=== PATIENT | female | born 1985 | race American Indian/Alaskan Native ===

== ENCOUNTER 2019-12-16 21:01 | Emergency (ER) | payer SELFPAY ==
--- NOTE | 2019-12-16 22:14 | Emergency Department Report ---
HPI <SNEHA REAL - Last Filed: 12/18/19 09:52> - HPI HPI: This is a 34-year-old female presents to the emergency department for a mental health evaluation. The patient has been having depression over the past 2 weeks ever since the patient had a miscarriage. She has been having some suicidal ideations without a plan. The patient says "I called my friend who works here and asked if I could come and be on suicide watch." The patient does have a diagnosed history of depression for which he takes sertraline. She says that she does not have any support structure, especially regarding her family. She says that her family does not know about the miscarriage. She denies any other past medical history. She denies any hallucinations or homicidal ideations. <CHRIS TURNER - Last Filed: 12/19/19 10:36> - General Chief Complaint: Psych Time Seen by Provider: 12/16/19 22:02 ED Past Medical Hx <SNEHA REAL - Last Filed: 12/18/19 09:52> <CRHIS TURNER Jeremie - Last Filed: 12/19/19 10:36> - Medications Home Medications: Home Medications Medication Instructions Recorded Confirmed Last Taken Type Sertraline [Zoloft] 1 tab PO QHS 12/17/19 12/17/19 Unknown History ED Review of Systems ROS: Stated complaint: MH EVAL,SUICIDAL THOUGHTS Other details as noted in HPI <SNEHA REAL - Last Filed: 12/18/19 09:52> ROS: Stated complaint: MH EVAL,SUICIDAL THOUGHTS Other details as noted in HPI Comment: All other systems reviewed and negative Constitutional: denies: chills, fever Respiratory: denies: shortness of breath Cardiovascular: denies: chest pain Gastrointestinal: denies: abdominal pain Musculoskeletal: denies: back pain Neurological: denies: headache Psychiatric: suicidal thoughts. denies: auditory hallucinations, visual hallucinations, homicidal thoughts <CHRIS TURNER - Last Filed: 12/19/19 10:36> Physical Exam - Physical Exam Vital Signs: Vital Signs 12/16/19 12/17/19 12/17/19 22:02 02:00 07:00 Temperature 98.3 F 98.9 F 98.6 F Pulse Rate 96 H 76 87 Respiratory 20 16 16 Rate Blood Pressure 124/89 105/74 101/72 [Left] O2 Sat by Pulse 100 98 100 Oximetry 12/17/19 12/17/19 12/17/19 15:01 20:03 21:17 Temperature 99.9 F H 98.8 F Pulse Rate 96 H 72 Respiratory 16 18 16 Rate Blood Pressure 98/69 103/71 [Left] O2 Sat by Pulse 100 98 Oximetry 12/17/19 12/18/19 12/18/19 22:17 01:22 08:26 Temperature 98.1 F 98.6 F Pulse Rate 71 88 Respiratory 16 18 18 Rate Blood Pressure 96/56 111/63 [Left] O2 Sat by Pulse 98 100 Oximetry <SNEHA REAL - Last Filed: 12/18/19 09:52> - Physical Exam Vital Signs: Vital Signs 12/16/19 22:02 Temperature 98.3 F Pulse Rate 96 H Respiratory 20 Rate Blood Pressure 124/89 [Left] O2 Sat by Pulse 100 Oximetry Physical Exam: GENERAL: The patient is well-developed well-nourished. HENT: Normocephalic. Atraumatic. Patient has moist mucous membranes. EYES: Extraocular motions are intact. NECK: Supple. Trachea is midline. CHEST/LUNGS: Clear to auscultation. There is no respiratory distress noted. HEART/CARDIOVASCULAR: Regular. There is no tachycardia. ABDOMEN: Abdomen is soft, nontender. Patient has normal bowel sounds. SKIN: Skin is warm and dry. NEURO: The patient is awake, alert, and oriented. The patient is cooperative. Normal speech. MUSCULOSKELETAL: There is no tenderness or deformity. PSYCH: Patient is tearful. <CHRIS TURNER - Last Filed: 12/19/19 10:36> ED Course Vital Signs 12/16/19 12/17/19 12/17/19 22:02 02:00 07:00 Temperature 98.3 F 98.9 F 98.6 F Pulse Rate 96 H 76 87 Respiratory 20 16 16 Rate Blood Pressure 124/89 105/74 101/72 [Left] O2 Sat by Pulse 100 98 100 Oximetry 12/17/19 12/17/19 12/17/19 15:01 20:03 21:17 Temperature 99.9 F H 98.8 F Pulse Rate 96 H 72 Respiratory 16 18 16 Rate Blood Pressure 98/69 103/71 [Left] O2 Sat by Pulse 100 98 Oximetry 0912/18/19 12/18/19 22:17 01:22 08:26 Temperature 98.1 F 98.6 F Pulse Rate 71 88 Respiratory 16 18 18 Rate Blood Pressure 96/56 111/63 [Left] O2 Sat by Pulse 98 100 Oximetry - Reevaluation(s) Reevaluation #1: 12/18/19 09:52 Asymptomatic white count of 10.5 without clinically corroborating symptoms does not require redraw medically or emergently, and does not represent a medical contraindication to psychiatric placement at this time <FARHANSNEHA - Last Filed: 12/18/19 09:52> Vital Signs 12/16/19 22:02 Temperature 98.3 F Pulse Rate 96 H Respiratory 20 Rate Blood Pressure 124/89 [Left] O2 Sat by Pulse 100 Oximetry <CHRIS TURNER S - Last Filed: 12/19/19 10:36> ED Medical Decision Making - Lab Data Result diagrams: 12/16/19 22:27 12/16/19 22:27 <AMORTITOSNEHA Last Filed: 12/18/19 09:52> - Lab Data Result diagrams: 12/16/19 22:27 12/16/19 22:27 - Medical Decision Making This patient presents to the emergency department with a complaint of depression, with a history of depression that was exacerbated by recent miscarriage. This has caused her to have some suicidal ideations without a plan. Patient was asking a friend, who allegedly works here, if she could come be placed on "suicide watch." For this reason a 1013 has been filled out. Patient's labs have been unremarkable including CBC, metabolic panel, blood alcohol level, urinalysis and urine drug screen. Vital signs have been reassuring throughout her ED course thus far. The patient is medically cleared for psychiatric placement. Further disposition by the psychiatric team. <CHRIS TURNER - Last Filed: 12/19/19 10:36> Critical care attestation.: If time is entered above; I have spent that time in minutes in the direct care of this critically ill patient, excluding procedure time. <FARHANSNEHA - Last Filed: 12/18/19 09:52> Critical Care Time: No Critical care attestation.: If time is entered above; I have spent that time in minutes in the direct care of this critically ill patient, excluding procedure time. <CHRIS TURNER Last Filed: 12/19/19 10:36> ED Disposition <SNEHA REAL - Last Filed: 12/18/19 09:52> Is pt being admited?: No Time of Disposition: 01:57 <CHRIS TURNER - Last Filed: 12/19/19 10:36> Clinical Impression: Suicidal ideations Depression Qualifiers: Depression Type: unspecified Qualified Code(s): F32.9 - Major depressive disorder, single episode, unspecified Disposition: DC-01 TO HOME OR SELFCARE Condition: Stable Additional Instructions: Professional and Agency Contacts To help [facility](24/10) [place] Crisis [place]: Suicide Prevention Line: Crisis Text Line: [place] [address] Emergency: 911 Outpatient [facility] Behavior[facility] Health Resources: [facility]: [facility] [address] [place], [place] [address] [place]: [facility] - [address] [place] [address] Monday thru Monday - 8am - 5pm [facility]: [facility] Address: [address] [place] [address] Monday thru Monday- 7am-2pm [facility] Address: [address] [place] [address] Monday thru Monday: 8:30AM-5PM Referrals: PRIMARY CARE, [Primary Care Provider] - 3-5 Days
[2019-12-16 22:39] LABS: Bilirubin,Urine NEG (Negative); Blood,Urine NEG (Negative); Color,Urine Yellow (Yellow); Mucus,Urine 2+ /HPF; Protein,Urine <15 mg/dL mg/dL (Negative); Urobilinogen,Urine < 2.0 mg/dL (<2.0)
[2019-12-16 22:44] LABS: Amphetamine Screen,Urine PRESUMPTIVE NEGATIVE; Benzodiazepines Screen,Urine PRESUMPTIVE NEGATIVE; Cannabinoid Screen,Urine PRESUMPTIVE POSITIVE; Cocaine Screen,Urine PRESUMPTIVE NEGATIVE; Methadone Screen,Urine PRESUMPTIVE NEGATIVE; Opiate Screen,Urine PRESUMPTIVE NEGATIVE
[2019-12-16] MEDS ORDERED: ALPRAZolam 0.5 MG TAB PO ONE (23:04)
[2019-12-16 23:09] LABS: Basophils # (Auto) 0.1 K/mm3 (0.0-0.1); Basophils % (Auto) 0.7 % (0.0-1.8); Eosinophils % (Auto) 0.2 % (0.0-4.3); Hematocrit 32.6 % (30.3-42.9); Hemoglobin 10.3 gm/dl (10.1-14.3); Lymphocytes # (Auto) 2.9 K/mm3 (1.2-5.4); Lymphocytes % (Auto) 28.2 % (13.4-35.0); Mean Corpuscular HGB Conc 32 % (30-34); Mean Corpuscular Volume 75 fl (79-97); Monocytes # (Auto) 0.7 K/mm3 (0.0-0.8); Monocytes % (Auto) 6.5 % (0.0-7.3); Platelet Count 435 K/mm3 (140-440); Red Blood Count 4.35 M/mm3 (3.65-5.03); Red Cell Distribution Width 18.3 % (13.2-15.2)
[2019-12-16 23:30] LABS: Blood Urea Nitrogen 10 mg/dL (7-17); Calcium 9.6 mg/dL (8.4-10.2); Hemolysis Index 0
[2019-12-16 23:46] LABS: BUN/Creatinine Ratio 14
[2019-12-17] MEDS ORDERED: ACETAMINOPHEN 325 MG TAB PO ONE (21:08)
[2019-12-18 08:28] VITALS: BP 111/63
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
== END 2019-12-18 14:00 ==
LOC: ED 21:01 → EEVIPCON 21:01 → ED 12-18 14:00
DX: R45.851 Suicidal ideations (principal); F32.9 Major depressive disorder, single episode, unspecified
CPT/HCPCS: 36415; 80048; 80307; 80320; 81001; 84703; 85025; G0480

== ENCOUNTER 2020-12-23 18:17 | Emergency (ER) | payer SELFPAY ==
[2020-12-23 19:32] VITALS: BP 117/89
--- NOTE | 2020-12-23 20:32 | Emergency Department Report ---
ED Female HPI - General Chief complaint: Urogenital-Female Stated complaint: VAGINAL PAIN Time Seen by Provider: 12/23/20 20:27 Source: patient Mode of arrival: Ambulatory Limitations: No Limitations - History of Present Illness Initial comments: The patient was evaluated in the emergency department for symptoms described in the history of present illness. He/she was evaluated in the context of the global COVID-19 pandemic, which necessitated consideration that the patient might be at risk for infection with the virus that causes COVID-19. Insti tutional protocols and algorithms that pertain to the evaluation of patients at risk for COVID-19 are in a state of rapid change based on information released by regulatory bodies including the CDC and federal and state organizations. These policies and algorithms were followed during the patient's care in the emergency department. Please note that these policies, procedures and recommendations changed on a rapid basis. 35-year-old -[place] female presents to emergency room complaining of vaginal pain that she has had for a year. Patient states pain started before her cycle since she had a miscarriage a year ago. Patient states that she will get this clear discharge prior to her menstrual cycle starting. Patient reports her last menstrual period was 11/23/2020. She states that she did take ibuprofen earlier today and it helps and she takes states that taking a shower helps. Patient states that she tends to have lots of vaginal moisture. Patient has not followed up with her primary care provider Dr. Horner. Patient denies any abnormal vaginal discharge denies any vaginal bleeding. She states she does not smoke cigarettes does not smoke weed only socially drinks and is not vaccinated. Patient reports her pains a 5 out of 10. MD Complaint: vaginal discharge Onset/Timin -: year(s) Location: perineum Severity scale (0 -10): 5 Quality: other (Irritated) Consistency: intermittent Are you Now?: No Last Menstrual Period: 11/28/20 EDC: 09/04/21 Associated Symptoms: denies other symptoms - Related Data Sexually active: Yes : 3 Para: 0 Home Medications Medication Instructions Recorded Confirmed Last Taken Sertraline [Zoloft] 1 tab PO QHS 12/17/19 12/17/19 Unknown Allergies Allergy/AdvReac Type Severity Reaction Status Date / Time No Known Allergies Allergy Verified 12/23/20 19:32 ED Review of Systems ROS: Stated complaint: VAGINAL PAIN Other details as noted in HPI Comment: All other systems reviewed and negative ED Past Medical Hx - Past Medical History Previous Medical History?: No - Surgical History Past Surgical History?: No - Social History Smoking Status: Never Smoker - Medications Home Medications: Home Medications Medication Instructions Recorded Confirmed Last Taken Type Sertraline [Zoloft] 1 tab PO QHS 12/17/19 12/17/19 Unknown History ED Physical Exam - General Limitations: No Limitations General appearance: alert, in no apparent distress - Head Head exam: Present: atraumatic, normocephalic - Eye Eye exam: Present: normal appearance - ENT ENT exam: Present: mucous membranes moist - Neck Neck exam: Present: normal inspection - Respiratory Respiratory exam: Present: normal lung sounds bilaterally. Absent: respiratory distress - Cardiovascular Cardiovascular Exam: Present: regular rate, normal rhythm. Absent: systolic murmur, diastolic murmur, rubs, gallop - GI/Abdominal GI/Abdominal exam: Present: soft, normal bowel sounds. Absent: distended, tenderness, guarding - Extremities Exam Extremities exam: Present: normal inspection - Back Exam Back exam: Present: normal inspection - Neurological Exam Neurological exam: Present: alert, oriented X3 - Psychiatric Psychiatric exam: Present: normal affect, normal mood - Skin Skin exam: Present: warm, dry, intact, normal color. Absent: rash ED Course Vital Signs 12/23/20 19:28 Temperature 98.7 F Pulse Rate 89 Blood Pressure 117/89 ED Medical Decision Making - Medical Decision Making 35-year-old -[place] female presents to emergency room complaining of vaginal pain that she has had for a year. Patient states pain started before her cycle since she had a miscarriage a year ago. Patient states that she will get this clear discharge prior to her menstrual cycle starting. Patient reports her last menstrual period was 11/23/2020. She states that she did take ibuprofen earlier today and it helps and she takes states that taking a shower helps. Patient states that she tends to have lots of vaginal moisture. Patient has not followed up with her primary care provider Dr. Horner. Patient denies any abnormal vaginal discharge denies any vaginal bleeding. She states she does not smoke cigarettes does not smoke weed only socially drinks and is not vaccinated. Patient reports her pains a 5 out of 10. Recommend patient to continue with ibuprofen as it does help and take showers. Also recommend for her to follow-up with a [facility]. Discussed with her she may need to wear a cotton panty liner. Critical care attestation.: If time is entered above; I have spent that time in minutes in the direct care of this critically ill patient, excluding procedure time. ED Disposition Clinical Impression: Vaginal irritation Disposition: 01 HOME / SELF CARE / HOMELESS Is pt being admited?: No Does the pt Need Aspirin: No Condition: Stable Instructions: Vaginitis, [id number] Additional Instructions: Recommend for you to follow-up with your primary [facility]. You can take Tylenol ibuprofen or Aleve for your discomfort. Use cotton panty liners as that may help with the irritation. Referrals: PRIMARY CARE, [Primary Care Provider] - 3-5 Days [facility] [Provider Group] - 3-5 Days [facility] [Provider Group] - 3-5 Days [facility] [Provider Group] - 3-5 Days Forms: Work/School Release Form(ED) Time of Disposition: 20:33
== END 2020-12-23 21:26 | disposition home or self-care (01) ==
LOC: ED 18:17
DX: N89.8 Other specified noninflammatory disorders of vagina (principal)
CPT/HCPCS: 99282